=== PATIENT | female | born 1950 | race Caucasian/White ===

== ENCOUNTER 2019-01-20 10:25 | Outpatient (CLI) | payer MEDICARE | END 2019-01-20 10:26 | disposition home or self-care (01) | LOC: C.DEXAIC 10:25 | DX: M81.0 Age-related osteoporosis without current pathological fracture (principal); E04.1 Nontoxic single thyroid nodule ==

== ENCOUNTER 2019-02-05 07:16 | Outpatient (CLI) | payer MEDICARE | END 2019-02-05 07:17 | disposition home or self-care (01) | LOC: C.CARD 07:16 | DX: R06.02 Shortness of breath (principal); E11.9 Type 2 diabetes mellitus without complications ==